=== PATIENT | female | born 1955 | race Caucasian/White ===

== ENCOUNTER → 2017-08-15 | Outpatient (CLI) | payer OTHER ==
[~2017-08-15] MED LIST: ACETAMINOPHEN 325 MG TAB PO ONE; diphenhydrAMINE 25 MG CAP PO ONE
[2017-08-15 08:54] VITALS: BP 148/69; PULSE 61; RESP 15; TEMP 98.1; O2SAT 94
== END ==
LOC: FOBOP 07:17
PROVIDERS: ATTEND Internal Medicine Hematology & Oncology
PROC: 30233N1 Transfusion of Nonautologous Red Blood Cells into Peripheral Vein, Percutaneous Approach (ICD-10-PCS; principal; 2017-08-15)
DX: D61.9 Aplastic anemia, unspecified (principal)
CPT/HCPCS: 36430; P9016; P9040

== ENCOUNTER → 2018-09-21 | Outpatient (CLI) | payer OTHER, MEDICARE ==
[~2018-09-21] MED LIST changes: +ACETAMINOPHEN 325 MG TAB ONE
== END ==
LOC: FOBOP 09:33
PROVIDERS: ATTEND Internal Medicine Hematology & Oncology
PROC: 30233N1 Transfusion of Nonautologous Red Blood Cells into Peripheral Vein, Percutaneous Approach (ICD-10-PCS; principal; 2018-09-21)
DX: D61.9 Aplastic anemia, unspecified (principal)
CPT/HCPCS: 36430; P9016; P9040; 86850-90; 86922-90; 99001-90